=== PATIENT | male | born 1985 | race Two or more races ===

== ENCOUNTER 2017-05-12 21:02 | Emergency (ER) | payer SELFPAY ==
[~2017-05-12] VITALS: Ht 165.1 cm; Wt 93.0 kg
[2017-05-13] MEDS ORDERED: ACETAMINOPHEN WITH CODEINE 300/30MG TABLET PO ONE (02:45)
[2017-05-13 05:20] VITALS: BP 125/88
== END 2017-05-13 05:20 | disposition home or self-care (01) ==
LOC: ER 21:02
DX: S22.39XA Fracture of one rib, unspecified side, initial encounter for closed fracture (principal); S39.012A Strain of muscle, fascia and tendon of lower back, initial encounter; S16.1XXA Strain of muscle, fascia and tendon at neck level, initial encounter; V29.88XA Motorcycle rider (driver) (passenger) injured in other specified transport accidents, initial encounter; Y93.89 Activity, other specified; Y92.89 Other specified places as the place of occurrence of the external cause; Y99.8 Other external cause status
CPT/HCPCS: 72100; 72170; 72220; 99284